=== PATIENT | female | born 1950 | race Caucasian/White ===

== ENCOUNTER → 2022-03-08 10:34 | Outpatient (BNVA) | payer MEDICARE, MEDICAID, SELFPAY | PROVIDERS: PCP Family Medicine; Visit Provider Internal Medicine Rheumatology | DX: M25.50 Pain in unspecified joint (principal); Z79.899 Other long term (current) drug therapy; Z11.59 Encounter for screening for other viral diseases; Z11.1 Encounter for screening for respiratory tuberculosis; Z82.61 Family history of arthritis; Z71.85 Encounter for immunization safety counseling | CPT/HCPCS: 71046; 73130; 73630; 84550; 85651; 86140; 86200; 86431; 86480; 86704; 86803; 87340; 99204 ==

== ENCOUNTER → 2022-05-17 13:16 | Outpatient (BNVA) | payer MEDICARE, MEDICAID, SELFPAY | PROVIDERS: PCP Family Medicine; Visit Provider Internal Medicine Rheumatology | DX: M06.041 Rheumatoid arthritis without rheumatoid factor, right hand (principal); M06.042 Rheumatoid arthritis without rheumatoid factor, left hand; Z71.85 Encounter for immunization safety counseling; Z79.899 Other long term (current) drug therapy; Z79.52 Long term (current) use of systemic steroids | CPT/HCPCS: 99214 ==

== ENCOUNTER → 2022-11-09 14:36 | Outpatient (BNVA) | payer MEDICARE, MEDICAID, SELFPAY | PROVIDERS: PCP Internal Medicine; Visit Provider Internal Medicine Rheumatology | DX: M06.041 Rheumatoid arthritis without rheumatoid factor, right hand (principal); M06.042 Rheumatoid arthritis without rheumatoid factor, left hand; Z79.899 Other long term (current) drug therapy; Z71.85 Encounter for immunization safety counseling | CPT/HCPCS: 36415; 80076; 82565; 85025; 86140; 99214 ==

== ENCOUNTER → 2023-02-01 14:15 | Outpatient (BNVA) | payer MEDICARE, MEDICAID, SELFPAY | PROVIDERS: PCP Internal Medicine; Visit Provider Internal Medicine Rheumatology | DX: Z79.899 Other long term (current) drug therapy (principal); M06.041 Rheumatoid arthritis without rheumatoid factor, right hand; M06.042 Rheumatoid arthritis without rheumatoid factor, left hand; Z71.85 Encounter for immunization safety counseling | CPT/HCPCS: 36415; 80076; 82565; 85025; 86140; 99214 ==

== ENCOUNTER → 2023-05-23 13:51 | Outpatient (BNVA) | payer MEDICARE, MEDICAID, SELFPAY | PROVIDERS: PCP Internal Medicine; Visit Provider Internal Medicine Rheumatology | DX: Z79.899 Other long term (current) drug therapy (principal); M06.041 Rheumatoid arthritis without rheumatoid factor, right hand; M06.042 Rheumatoid arthritis without rheumatoid factor, left hand; Z71.85 Encounter for immunization safety counseling | CPT/HCPCS: 36415; 80076; 82306; 82565; 84439; 84443; 85025; 86140; 99214 ==

== ENCOUNTER → 2023-10-27 14:29 | Outpatient (BNVA) | payer OTHER, MEDICAID, SELFPAY | PROVIDERS: PCP Internal Medicine; Visit Provider Internal Medicine Rheumatology | DX: Z79.899 Other long term (current) drug therapy (principal); M06.041 Rheumatoid arthritis without rheumatoid factor, right hand; M06.042 Rheumatoid arthritis without rheumatoid factor, left hand; Z11.59 Encounter for screening for other viral diseases; Z11.1 Encounter for screening for respiratory tuberculosis; Z71.85 Encounter for immunization safety counseling | CPT/HCPCS: 36415; 80076; 82565; 85025; 86140; 86480; 86704; 86803; 87340; 99214 ==

== ENCOUNTER 2023-11-17 12:08 | Oncology outpatient (recurring) (ONCR) | payer OTHER, MEDICAID, SELFPAY ==
[2023-11-17] MEDS: sodium chloride 0.9% (100 ml) 100 ML 75 ML (13:50)
[2023-11-17] MEDS: acetaminophen 325 mg Tablet 650 MG PO (13:53)
[2023-11-17] MEDS: diphenhydrAMINE 50 mg/mL SDV 1mL 25 MG IVP (13:54)
[2023-11-17 14:02] LABS: Basophils % 0.2 %; Eosinophils # 0.1 10^3/uL (0.0-0.8); Eosinophils % 0.5 %; Lymphocytes # 2.6 10^3/uL (0.8-4.8); Lymphocytes % 19.4 %; Mean Corpuscular HGB Conc 28.4 g/dL (30-55); Mean Platelet Volume 10.3 fL (7.4-10.4); Monocytes # 1.3 10^3/uL (0.2-0.9); Monocytes % 9.5 %; Neutrophils # 9.18 10^3/uL (1.8-7.7); Neutrophils % 69.3 %; Nucleated Red Blood Cells % 0 %; Platelet Count 259 10^3/cmm (157-399); Red Blood Count 3.38 10^6/uL (3.85-5.65); Red Cell Distribution Width 20.1 % (12.1-15.1); White Blood Count 13.26 10^3/uL (3.29-11.43)
[2023-11-17] MEDS: methylPREDNISolone sod succ 40 mg/mL INJ IVP (14:04)
[2023-11-17 14:15] VITALS: BP 192/80; PULSE 78; RESP 18; TEMP 36.6; O2SAT 94
[2023-11-17] MEDS: INFLIXIMAB AXXQ IV (14:16)
[2023-11-17] MEDS: SODIUM CHLORIDE 0.9% IV (14:16)
[2023-11-17 14:18] LABS: Alanine Aminotransferase 14 U/L (0-33); Albumin Level 4.1 g/dL (3.5-5.2); Alkaline Phosphatase 94 U/L (35-105); Aspartate Amino Transferase 12 U/L (0-32); Creatinine Clr Calc Pharmacy 56.8897; Globulin 1.7 g/dL (1.3-4.6); Total Bilirubin 0.4 mg/dL (0.15-1.2); Total Protein 5.8 g/dL (6.6-8.7)
[2023-11-17 14:30] VITALS: BP 181/81; PULSE 84; RESP 18; TEMP 36.1; O2SAT 95
[2023-11-17 15:00] VITALS: BP 188/79; PULSE 76; RESP 18; TEMP 36.3; O2SAT 97
[2023-11-17 15:15] VITALS: BP 177/71; PULSE 78; RESP 17; TEMP 36.6; O2SAT 96
[2023-11-17 15:30] VITALS: BP 181/74; PULSE 78; RESP 18; TEMP 36.6; O2SAT 97
[2023-11-17 17:00] VITALS: BP 178/81; PULSE 78; RESP 18; TEMP 36.6; O2SAT 98
== END 2023-12-13 23:59 | disposition home or self-care (01) ==
PROVIDERS: PCP Internal Medicine; Visit Provider Internal Medicine Rheumatology
DX: M06.041 Rheumatoid arthritis without rheumatoid factor, right hand (principal); M06.042 Rheumatoid arthritis without rheumatoid factor, left hand; Z53.9 Procedure and treatment not carried out, unspecified reason
CPT/HCPCS: 80076; 82565; 85025; 86140; 96367; 96413; 96415; A4222; J1200; J2919; J7050; Q5121

== ENCOUNTER 2023-12-29 12:30 | Oncology outpatient (recurring) (ONCR) | payer OTHER, MEDICAID, SELFPAY ==
[2023-12-29] VITALS (8 sets, daily range): BP systolic 147–191; BP diastolic 72–103; PULSE 83–94; RESP 18; TEMP 36.1–36.6; O2SAT 92–96
[2023-12-29] MEDS: acetaminophen 325 mg Tablet 650 MG PO (13:14)
[2023-12-29] MEDS: sodium chloride 0.9% 250 ML 75 ML IV (13:16)
[2023-12-29] MEDS: methylPREDNISolone sod succ 40 mg/mL INJ IVP (13:20)
[2023-12-29] MEDS: diphenhydrAMINE 50 mg/mL SDV 1mL 25 MG IVP (13:22)
[2023-12-29] MEDS: INFLIXIMAB AXXQ IV (13:33)
[2023-12-29] MEDS: SODIUM CHLORIDE 0.9% IV (13:33)
== END 2024-01-13 23:59 | disposition home or self-care (01) ==
PROVIDERS: PCP Internal Medicine; Visit Provider Internal Medicine Medical Oncology
DX: M06.041 Rheumatoid arthritis without rheumatoid factor, right hand (principal); M06.042 Rheumatoid arthritis without rheumatoid factor, left hand
CPT/HCPCS: 96375; 96413; 96415; A4222; J1200; J2919; J7050; Q5121